=== PATIENT | female | born 2005 | race Hispanic/Latino ===

== ENCOUNTER 2023-10-08 08:43 | Emergency (ER) | payer OTHER ==
[2023-10-08] MEDS ORDERED: Ibuprofen 800 MG TAB ONE (09:18)
== END 2023-10-08 10:37 | disposition home or self-care (01) ==
LOC: ERS 08:43
DX: S39.012A Strain of muscle, fascia and tendon of lower back, initial encounter (principal); S29.012A Strain of muscle and tendon of back wall of thorax, initial encounter; S50.01XA Contusion of right elbow, initial encounter; V43.52XA Car driver injured in collision with other type car in traffic accident, initial encounter
CPT/HCPCS: 72072; 72100